=== PATIENT | male | born 1985 | race Caucasian/White ===

== ENCOUNTER 2017-03-03 13:08 | Emergency (ER) | payer SELFPAY ==
[2017-03-03 13:33] LABS: BASOPHILS 0.7 % (0.0-2.0); EOSINOPHILS 0.1 % (0.0-6.0); HEMATOCRIT 39.8 % (42.0-54.0); LYMPHOCYTES 21.6 % (20.0-40.0); LYMPHOCYTES# 1.3 X 10^3uL (0.8-3.8); MEAN CELL VOLUME 78.5 fL (80.0-100.0); MEAN CORPUS. HGB CONCENTRATION 32.6 g/dL (32.0-36.0); MONOCYTES 11.1 % (2.0-10.0); MONOCYTES# 0.7 X 10^3uL (0.2-1.0); NEUTROPHILS 66.5 % (54.0-75.0); NEUTROPHILS# 4.2 X 10^3uL (2.6-6.7); RED BLOOD COUNT 5.07 X 10^6uL (4.20-6.10); WHITE BLOOD COUNT 6.2 X 10^3uL (3.9-10.7)
[2017-03-03] MEDS ORDERED: LORazepam 2 MG/ML INJ ONE (13:37)
[2017-03-03] MEDS ORDERED: FAMOTIDINE IN SALINE, ISO-OSM 20 MG/50 ML PIGGYBACK IV ONE (13:37)
[2017-03-03 13:43] LABS: ALBUMIN 5.2 g/dL (3.5-5.0); ALKALINE PHOSPHATASE 167 U/L (38-126); ALT 248 U/L (21-72); AST 532 U/L (17-59); BILIRUBIN, DIRECT 1.1 mg/dL (0.0-0.4); BILIRUBIN, TOTAL 2.5 mg/dL (0.2-1.3); BLOOD UREA NITROGEN 15 mg/dL (9-20); CALCIUM 10.9 mg/dL (8.4-10.2); CHLORIDE 97 mmol/L (98-107); EST GLOMERULAR FILTRATION RATE > 60 mL/min; ETHYL ALCOHOL 23 mg/dL (<10); GLUCOSE 112 mg/dL (70-100); LIPASE 406 U/L (23-300); POTASSIUM 3.7 mmol/L (3.5-5.1); SODIUM 142 mmol/L (137-145); TOTAL PROTEIN 10.5 g/dL (6.3-8.2)
[2017-03-03 13:46] LABS: RED CELL DISTRIBUTION WIDTH 23.2 % (11.5-14.5)
[2017-03-03 13:47] LABS: MEAN CORPUSCULAR HEMOGLOBIN 25.6 pg (29.0-35.0); PLATELET COUNT 166 X 10^3uL (130-440)
[2017-03-03] MEDS ORDERED: ONDANSETRON HCL 4 MG/2 ML VIAL ONE (13:47)
[2017-03-03 15:07] LABS: URINE SQUAMOUS EPITHELIAL CELL NONE SEEN (<= 15/hpf); URINE WBC NONE SEEN (0-4/hpf)
[2017-03-03 15:08] LABS: CREATINE KINASE 356 U/L (55-170)
[2017-03-03 15:23] LABS: URINE APPEARANCE CLEAR; URINE COLOR AMBER
[2017-03-03 15:24] LABS: URINE BACTERIA <10 ORGANISMS/hpf (<10/hpf); URINE BILIRUBIN 3.0 mg/100ml (3+) (NEGATIVE); URINE BLOOD TRACE (NEGATIVE); URINE GLUCOSE NORMAL (NEGATIVE); URINE KETONE 100mg/dL (3+) (NEGATIVE); URINE LEUKOCYTE ESTERASE NEGATIVE (NEGATIVE); URINE MUCUS UP TO 25%/lpf (Up to 25%); URINE NITRITE NEGATIVE (NEGATIVE); URINE PROTEIN 300mg/dL (3+) (NEG - TRACE); URINE RBC 0-5/hpf (0-5/hpf); URINE SPECIFIC GRAVITY 1.025 (0.001-1.035); URINE UROBILINOGEN 8mg/dL (NEG-1mg/dL)
--- NOTE | 2017-03-03 15:35 | ER NURSING DOCUMENTATION ---
Nurse's Notes [facility] Name:Crescencio Howard Age:32 yrs Sex:Male :1985 Arrival Date:03/03/2017 Time:13:08 Bed4 Private MD: Diagnosis:Pancreatitis, Acute;Alcohol Gastritis, w/o Hemorrhage;Dehydration Presentation: 03/03 13:13 Acuity: BALAJI 3 st 13:38 Presenting complaint: Patient states: I started throwing up yesterday morning and it mk2 kept going until 2:30 am. I have this things that bulges in my upper left belly when I throw up. It hurts bad during that but just sitting here it's a /10. Pt also states he got out of alcohol rehab this month and "fell off the wagon." Pt last drink of vodka was 3 days ago. ". Transition of care: Home. Risk considerations: patient denies pain radiation to back or syncopal episode. 13:38 Method Of Arrival: Walk In [facility] Triage Assessment: 13:42 General: Appears uncomfortable, Behavior is anxious, cooperative. Pain: Complains of mk2 pain in left upper quadrant Pain does not radiate. Pain currently is 1 out of 10 on a pain scale. At worst was 7 out of 10 on a pain scale. Neuro: No deficits noted. Cardiovascular: Heart tones S1 S2 Rhythm is sinus tachycardia. Respiratory: Breath sounds are clear bilaterally. GI: Reports nausea, vomiting. GI: Reports a bulge in upper L abdomen with vomiting. : Denies burning with urination. Historical: - Allergies: No known drug Allergies; - Home Meds: 1. None - PMHx: None; - PSHx: None; - Ebola Screening: : Patient denies exposure to infectious person. Patient denies travel to an Ebola-affected area in the 21 days before illness onset. . - Immunization history: Flu Vaccine >1 year. - Social history: Smoking status: Patient states was never smoker of tobacco. Patient uses alcohol has been to rehab for ETOH abuse. using ETOH again. . Screenin:46 Infectious Disease Risk None. Abuse screen: Denies threats or abuse. Nutritional 2 screening: No deficits noted. Assessment: 13:46 See Triage Assessment done by same RN. [facility] 15:33 GI: Abd is soft and non tender. mk2 Vital Signs: 13:16 BP 151 / 92; Pulse 132; Resp 22; Temp 98.1(O); Pulse Ox 95% on R/A; Weight 90.72 kg arc (R); Height 5 ft. 11 in. (180.34 cm) (R); Pain 6/10; 13:39 Pulse 107 MON; Resp 25; Pulse Ox 95% ; mk2 14:04 Pulse 106 MON; Resp 21; Pulse Ox 95% ; mk2 14:08 BP 137 / 90 (auto/); mk2 14:09 Pulse 105 MON; Resp 19; Pulse Ox 95% ; mk2 14:09 Pain 1/10; mk2 15:33 Pain 0/10; mk2 13:16 Body Mass Index 27.89 (90.72 kg, 180.34 cm) arc ED Course: 13:11 Patient arrived in ED. ama 13:[address] 13:16 Valuables Remains with patient Patient has correct armband on for positive st identification. Placed in gown. Bed in low position. Pulse Ox - RN Monitoring Only NIBP On - RN Monitoring Only. 13:30 Hernán Spicer MD is Attending Physician. jm 13:38 Julia Estrella, RN is Primary Nurse. mk2 13:46 Cardiac Monitoring On for Nurse Monitoring only. mk2 13:46 Inserted peripheral IV: 20 gauge in left antecubital area and blood collected. mk2 14:51 Pulse ox on. mk2 15:18 Urine collected. Voided. mk2 15:19 [facility] is Referral Physician. jm 15:28 Discontinued lock intact, bleeding controlled, pressure dressing applied, No sc1 redness/swelling at site. Administered Medications: 13:46 CANCELLED (Patient Refused): Ativan 1 mg IVP once mk2 13:46 Drug: NS 0.9% 1000 ml; Route: IV; Rate: bolus; Site: left antecubital; mk2 14:00 Follow up: IV Status: Completed infusion; IV Intake: 999ml mk2 13:46 Drug: Pepcid 20 mg; Route: IVPB; Site: left antecubital; mk2 15:34 Follow up: IV Status: Completed infusion; IV Intake: 50ml mk2 13:48 Drug: Zofran 4 mg; Route: IVP; Infused Over: 2 mins; Site: left antecubital; mk2 13:55 Follow up: Response: Nausea is decreased mk2 14:00 Drug: NS 0.9% 1000 ml; Route: IV; Rate: bolus; Site: left antecubital; mk2 14:52 Follow up: IV Status: Completed infusion; IV Intake: 999ml mk2 14:07 Drug: Carafate 1 grams; Route: PO; mk2 14:51 Follow up: Response: No adverse reaction mk2 15:27 CANCELLED (Physician Discretion): Librium - chlordiazePOXIDE 50mg 25 mg PO Per package mk2 directions; Q6H prn W/D Sx's (Disp.#10) 15:27 Drug: librium - chlordiazePOXIDE 50 mg; Route: PO; mk2 15:33 Follow up: Response: No adverse reaction mk2 Intake: 14:00 IV: 999ml; Total: 999ml. mk2 14:52 IV: 999ml; Total: 1998ml. mk2 15:34 IV: 50ml; Total: 2048ml. mk2 Outcome: 15:20 Discharge ordered by . tino 15:28 Discharged to home ambulatory. [facility] [place] 15:28 Condition: stable 15:28 Discharge instructions given to patient, Instructed on discharge instructions, follow up and referral plans. medication usage, Demonstrated understanding of instructions, medications, Prescriptions given X 3. 15:33 Discharge Assessment: Patient awake, alert and oriented x 3. No cognitive and/or mk2 functional deficits noted. Patient verbalized understanding of disposition instructions. 15:33 IV D/Ke 15:35 Patient left the ED. mk2 Signatures: Allie Melton RN RN st Campbell, Sandy, RN RN wa1 Hernán Spicer MD MD jm Kruger, Meg, RN RN mk2 Lior Gonzalez, Reg Reg ama Arcelia Maya, Reg Reg arc
--- NOTE | 2017-03-03 15:35 | ER PHYSICIAN DOCUMENTATION ---
Physician Documentation [facility] Name:Crescencio Howard Age:32 yrs Sex:Male :1985 Arrival Date:03/03/2017 Time:13:08 Bed4 Private MD: Hernán Johnson Disposition: 03/03/17 15:20 Discharged to Home/Self Care. Impression: Pancreatitis, Acute, Alcohol Gastritis, w/o Hemorrhage, Dehydration. - Condition is Good. - Discharge Instructions: Acute Pancreatitis - PANCREATITIS. - Prescriptions for chlordiazepoxide HCl 25 mg Oral capsule - take 1 capsule by ORAL route 3 times per day; 20 capsule. Zofran 4 mg Oral Tablet - take 1-2 tablet by ORAL route every 4-6 hours As needed; 10 tablet. Carafate 1 gram Oral - take 1 tablet by ORAL route 4 times per day take on an empty stomach, beginning on waking and last dose at bedtime; 50 tablet. - Medical Reconciliation form form. - [facility]; When: 1 week; Reason: Continuance of care. - Problem is new. - Symptoms have improved. HPI: 03/03 13:58 This 32 yrs old Male presents to ER via Walk In with complaints of Abdominal jm Pain, Nausea/Vomiting. 14:39 The patient presents with abdominal pain in the left lower quadrant. Onset: The jm symptoms/episode began/occurred yesterday, and became worse today. The symptoms do not radiate. Associated signs and symptoms: Pertinent positives: nausea, vomiting. The symptoms are described as burning, sharp, stabbing. Modifying factors: the symptoms are aggravated by drinking. Severity of pain: in the emergency department the pain is a 1 / 10. The patient has not experienced similar symptoms in the past. Pt here for LUQ pain and vomiting. It admits he is an alcoholic and feels like the vomiting has done a number on his system. PT says he has not had anything to drink in 3 days. . Historical: - Allergies: No known drug Allergies; - Home Meds: 1. None - PMHx: None; - PSHx: None; - Ebola Screening: : Patient denies exposure to infectious person. Patient denies travel to an Ebola-affected area in the 21 days before illness onset. . - Immunization history: Flu Vaccine >1 year. - Social history: Smoking status: Patient states was never smoker of tobacco. Patient uses alcohol has been to rehab for ETOH abuse. using ETOH again. . ROS: 14:48 Constitutional: Negative for fever. 14:48 Abdomen/GI: Positive for abdominal pain, nausea, vomiting. 14:48 Psych: Positive for alcohol dependence. 14:48 All other systems are negative. Exam: 14:51 Constitutional: The patient appears alert, awake. 14:51 Cardiovascular: Rate: tachycardic, Rhythm: regular. 14:51 Abdomen/GI: Inspection: distension, is not seen, Bowel sounds: normal, Palpation: abdomen is soft and non-tender, Hernia: not appreciated. 14:51 Neuro: Mentation: is normal, Memory: is normal. 14:51 Psych: Behavior/mood is pleasant, cooperative, Affect is flat. Vital Signs: 13:16 BP 151 / 92; Pulse 132; Resp 22; Temp 98.1(O); Pulse Ox 95% on R/A; Weight 90.72 kg arc (R); Height 5 ft. 11 in. (180.34 cm) (R); Pain 6/10; 13:39 Pulse 107 MON; Resp 25; Pulse Ox 95% ; mk2 14:04 Pulse 106 MON; Resp 21; Pulse Ox 95% ; mk2 14:08 BP 137 / 90 (auto/); mk2 14:09 Pulse 105 MON; Resp 19; Pulse Ox 95% ; mk2 14:09 Pain 1/10; mk2 15:33 Pain 0/10; mk2 13:16 Body Mass Index 27.89 (90.72 kg, 180.34 cm) arc MDM: 13:30 Patient medically screened. 14:52 Differential diagnosis: gastritis, Hepatitis, Mesenteric ischemia or infarction, pancreatitis. Data reviewed: vital signs, nurses notes, old medical records, lab test result(s), and as a result, I will discharge patient. Counseling: I had a detailed discussion with the patient and/or guardian regarding: the historical points, exam findings, and any diagnostic results supporting the discharge/admit diagnosis, lab results, the need for outpatient follow up, with the patient's primary care provider. Medication response: The patient's symptoms have improved, Carafate, pepcid, and zofran. . 03/03 13:48 Order name: CBC AUTO DIF, MDIF/RMOR IF IND; Complete Time: 15:12 EDMS 03/03 13:49 Order name: BASIC METABOLIC PANEL; Complete Time: 15:12 EDMS 03/03 13:49 Order name: HEPATIC PANEL; Complete Time: 15:12 EDMS 03/03 13:49 Order name: LIPASE; Complete Time: 15:12 EDMS 03/03 13:49 Order name: ETHYL ALCOHOL; Complete Time: 15:12 EDMS 03/03 15:10 Order name: CREATINE KINASE; Complete Time: 15:12 EDMS 03/03 15:25 Order name: UA W/ MICRO -CULTURE IF IND; Complete Time: 16:17 EDMS 03/03 13:48 Order name: Pulse Ox Continuous; Complete Time: 13:56 03/03 13:48 Order name: Iv Saline Lock; Complete Time: 13:56 Dispensed Medications: 13:46 CANCELLED (Patient Refused): Ativan 1 mg IVP once mk2 13:46 Drug: NS 0.9% 1000 ml; Route: IV; Rate: bolus; Site: left antecubital; mk2 14:00 Follow up: IV Status: Completed infusion; IV Intake: 999ml mk2 13:46 Drug: Pepcid 20 mg; Route: IVPB; Site: left antecubital; mk2 15:34 Follow up: IV Status: Completed infusion; IV Intake: 50ml mk2 13:48 Drug: Zofran 4 mg; Route: IVP; Infused Over: 2 mins; Site: left antecubital; mk2 13:55 Follow up: Response: Nausea is decreased mk2 14:00 Drug: NS 0.9% 1000 ml; Route: IV; Rate: bolus; Site: left antecubital; mk2 14:52 Follow up: IV Status: Completed infusion; IV Intake: 999ml mk2 14:07 Drug: Carafate 1 grams; Route: PO; mk2 14:51 Follow up: Response: No adverse reaction mk2 15:27 CANCELLED (Physician Discretion): Librium - chlordiazePOXIDE 50mg 25 mg PO Per package mk2 directions; Q6H prn W/D Sx's (Disp.#10) 15:27 Drug: librium - chlordiazePOXIDE 50 mg; Route: PO; mk2 15:33 Follow up: Response: No adverse reaction mk2 Signatures: Allie Melton, Hernán Vizcaino RN, MD MD jm Kruger, Meg, LILIBETH RN mk2
[2017-03-03] MEDS ORDERED: CHLORDIAZEPOXIDE 25 MG CAPSULE PO ONE (15:40)
== END 2017-03-03 15:35 | disposition home or self-care (01) ==
LOC: ER 13:08 → EEVIPCON 13:08 → ER 15:35
DX: K85.20 Alcohol induced acute pancreatitis without necrosis or infection (principal); K29.20 Alcoholic gastritis without bleeding; E86.0 Dehydration; F10.20 Alcohol dependence, uncomplicated; R00.0 Tachycardia, unspecified
CPT/HCPCS: 80048; 80076; 80320; 81001; 82550; 83690; 85025; 96365; 96366; 96375; 99284; J2060; J2405